=== PATIENT | male | born 1940 | race Caucasian/White ===

== ENCOUNTER 2017-02-06 18:18 | Inpatient (IN) | payer MEDICARE ==
[~2017-02-06] VITALS: Ht 177.8 cm; Wt 82.2 kg
[~2017-02-06 18:18] MED LIST: AVENZA PO; COLACE100 MG PO; MORPHINE SULFAT30 M1 PO; NIFEDIPINE ER90 MG PO; PRILOSEC40 MG PO; SOTALOL80 MG PO; ULTRAM 50MG50 MG PO; WARFARIN SODIUM10 MG PO
[2017-02-06] MEDS ORDERED: SODIUM CHLORIDE 0.9% 1000ML 500 ML IV STA (18:34)
[2017-02-06] MEDS ORDERED: SODIUM CHLORIDE 0.9% 500ML 500 ML ONE (18:42)
[2017-02-06] MEDS ORDERED: MORPHINE SULFATE 5 MG/ML VIAL IV ONE ×2 (18:45→20:00)
[2017-02-06] MEDS ORDERED: ONDANSETRON HCL INJ 2 MG/ML VIAL IV ONE (18:45)
[2017-02-06 18:57] LABS: BASOPHILS % 0.2 % (0.0-1.0); EOSINOPHILS # (AUTO) 0.1 (0.0-0.4); EOSINOPHILS % 0.8 % (0.0-6.0); HEMOGLOBIN 13.2 g/dL (14.0-18.0); LYMPHOCYTES % 10.6 % (18.0-39.1); MEAN CORPUSCULAR HEMOGLOBIN 26.6 pg (28-32); MEAN CORPUSCULAR VOLUME 80.6 fL (81-99); MONOCYTES # (AUTO) 0.2 (0.2-0.8); MONOCYTES % 2.1 % (4.4-11.3); NEUTROPHILS # (AUTO) 7.9 (2.1-6.9); PLATELET COUNT 178 x10e3/uL (140-360); RED BLOOD COUNT 4.96 x10e6/uL (4.3-5.7); RED CELL DISTRIBUTION WIDTH 14.8 % (11.7-14.4)
--- NOTE | 2017-02-06 19:13 | Diagnostic Imaging Report ---
Single view chest February 06, 2017 Clinical history: Epigastric pain Technique: AP view chest Comparison: None available. Findings: Lungs are clear. No pleural effusions. Upper limits of normal heart size for technique. Tortuous descending thoracic aorta. 2-lead pacemaker of the left hemithorax; leads grossly intact. Prominent central vasculature with peribronchial cuffing. The skeleton is grossly intact. Impression: Mild interstitial edema and vascular congestion consistent with congestive heart failure. This report was generated with voice-recognition technology. Errors in buttonhole maker can occur. Please interpret accordingly and contact a radiologist if there are any questions regarding the report. Signed by: Dr. Neel Rob M.D. on 02/06/2017 7:09 PM
[2017-02-06 19:16] LABS: INR 1.09; PARTIAL THROMBOPLASTIN TIME 33.5 seconds (23.8-35.5); PROTHROMBIN TIME 14.7 seconds (11.9-14.5)
[2017-02-06] MEDS ORDERED: LOSARTAN POTAS100 MG PO (19:16)
[2017-02-06] MEDS ORDERED: ELIQUIS PO (19:16)
[2017-02-06] MEDS ORDERED: FLOMAX0.4 MG PO (19:16)
[2017-02-06 19:25] LABS: ALANINE AMINOTRANSFERASE 102 IU/L (0-55); ALBUMIN 3.3 g/dL (3.5-5.0); ALBUMIN/GLOBULIN RATIO 0.7 (0.8-2.0); ALKALINE PHOSPHATASE 246 IU/L (40-150); AMYLASE 37 U/L (25-125); ANION GAP 14.1 mmol/L (8-16); BLOOD UREA NITROGEN 7 mg/dL (7-26); BUN/CREATININE RATIO 9 (6-25); CARBON DIOXIDE 27 mmol/L (22-29); CHLORIDE 103 mmol/L (98-107); CREATINE KINASE 45 IU/L (30-200); CREATININE, SERUM 0.82 mg/dL (0.72-1.25); EST GLOMERULAR FILTRATION RATE > 60 ML/MIN (60-); GLUCOSE 147 mg/dL (74-118); LIPASE 14 U/L (8-78); MAGNESIUM 1.7 MG/DL (1.3-2.1); POTASSIUM 3.1 mmol/L (3.5-5.1); SODIUM 141 mmol/L (136-145)
[2017-02-06 19:37] LABS: TROPONIN I 0.001 ng/mL (0-0.300)
[2017-02-06] MEDS ORDERED: ACETAMINOPHEN 325 MG TAB PO ONE (20:00)
[2017-02-06] MEDS ORDERED: HYDROMORPHONE 1MG/1ML INJ IV ONE (21:45)
--- NOTE | 2017-02-06 21:47 | Diagnostic Imaging Report ---
EXAM: US ABDOMEN COMPLETE DATE: 02/06/2017 12:00 AM Time stamp on exam: 2051 hours INDICATION: Severe stomach pain COMPARISON: None TECHNIQUE: Transverse and longitudinal watson scale and color doppler sonographic images of the upper abdomen were obtained. FINDINGS: LIVER 14.4 cm in the right midclavicular line. Normal echogenicity, normal contour, no masses. SPLEEN 11.3 cm in maximum diameter. Normal echogenicity, no masses. GALLBLADDER Cholecystectomy BILE DUCTS No intra nor extra-hepatic biliary dilation. Common bile duct measures 0.4 cm PANCREAS: Not well visualized RIGHT KIDNEY: 10 cm Echogenicity: Normal Collecting System: No hydronephrosis Stones: None Cyst/Mass: Simple 1.2 cm cyst inferior pole LEFT KIDNEY: 9.1 cm Echogenicity: Normal Collecting System: No hydronephrosis Stones: None Cyst/Mass: Simple 1 cm cyst inferior pole VESSELS: Aorta: Not well visualized Inferior Vena Cava: Not well visualized Main Portal Vein: 0.8 cm, normal size with hepatopetal flow. FREE FLUID: None IMPRESSION: Normal abdominal ultrasound. Cholecystectomy without ductal dilation. Signed by: Dr. Catherine Ramírez M.D. on 02/06/2017 9:43 PM
--- NOTE | 2017-02-06 23:01 | Diagnostic Imaging Report ---
EXAM: CT ABDOMEN AND PELVIS without IV CONTRAST DATE: 02/06/2017 10:10 PM Time stamp on Exam: 2223 hours INDICATION: Severe stomach pain COMPARISON: Abdominal ultrasound February 06, 2017 TECHNIQUE: The abdomen and pelvis were scanned using a multidetector helical scanner. Coronal and sagittal reformations were obtained. Routine protocol performed. IV Contrast: None Oral Contrast: None CTDIvol has been reviewed. It is below the limits set by the Radiation Protocol Committee (RPC). FINDINGS: LOWER THORAX: No consolidations LIVER: No masses BILIARY: Cholecystectomy. Pneumobilia in left hepatic lobe radicals. Common bile duct not well visualized. SPLEEN: No masses PANCREAS: The pancreatic head is poorly defined without IV contrast ADRENALS: No nodules RIGHT KIDNEY: No nephroureterolithiasis or hydronephrosis. Cyst measuring 1 cm in the posterior inferior pole. LEFT KIDNEY: No nephroureterolithiasis or hydronephrosis. Cyst measuring 1 cm in the lateral interpolar region. GI TRACT: No wall thickening or obstruction. Moderate sized hiatal hernia. 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 Normal appendix. 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 The cecum is in the right lower quadrant of the abdomen. VESSELS: Mild calcified atherosclerotic changes of the abdominal aorta without aneurysm. PERITONEUM/RETROPERITONEUM: No free air or fluid LYMPH NODES: Peripancreatic and retroperitoneal enlarged lymph nodes, for example 1.3 x 3 cm series 3, image 49. REPRODUCTIVE ORGANS: Normal BLADDER: Normal SOFT TISSUES: Normal BONES: Advanced degenerative changes of the lumbar spine with grade 1 anterolisthesis of L5 with respect to S1. IMPRESSION: 1. Left hepatic pneumobilia. Please correlate with possible procedural cause. 2. Peripancreatic and upper right retroperitoneal lymphadenopathy and poor visualization of the pancreatic head. An MRI of the abdomen with and without IV contrast is recommended to evaluate for underlying malignancy. 3. Moderate-sized hiatal hernia. Signed by: Dr. Catherine Ramírez M.D. on 02/06/2017 10:57 PM
[2017-02-07] MEDS ORDERED: KCL 20MEQ/.9 SOD CHL 1,000 ML IV ONE (01:15)
[2017-02-07] MEDS: PIPER-TAZ 3.375 GM 50 ML IV SCH (01:27)
[2017-02-07] MEDS: METRONIDAZOLE 500MG/NS 100ML 100 ML IV SCH ×4 (01:52→18:00)
[2017-02-07 02:45] VITALS: BP 136/63
[2017-02-07 04:07] LABS: BASOPHILS % 0.3 % (0.0-1.0); EOSINOPHILS % 0.1 % (0.0-6.0); HEMOGLOBIN 11.7 g/dL (14.0-18.0); LYMPHOCYTES # (AUTO) 0.6 (1.0-3.2); LYMPHOCYTES % 5.8 % (18.0-39.1); MEAN CORPUSCULAR HEMOGLOBIN 26.9 pg (28-32); MEAN CORPUSCULAR HGB CONC 33.4 g/dL (31-35); MEAN CORPUSCULAR VOLUME 80.5 fL (81-99); MONOCYTES # (AUTO) 0.7 (0.2-0.8); MONOCYTES % 5.9 % (4.4-11.3); NEUTROPHILS # (AUTO) 9.7 (2.1-6.9); NEUTROPHILS % 87.5 % (38.7-80.0); PLATELET COUNT 149 x10e3/uL (140-360); RED BLOOD COUNT 4.35 x10e6/uL (4.3-5.7); RED CELL DISTRIBUTION WIDTH 14.6 % (11.7-14.4)
[2017-02-07 04:32] LABS: ALANINE AMINOTRANSFERASE 392 IU/L (0-55); ALBUMIN 2.7 g/dL (3.5-5.0); ALBUMIN/GLOBULIN RATIO 0.7 (0.8-2.0); ALKALINE PHOSPHATASE 248 IU/L (40-150); AMYLASE 22 U/L (25-125); ANION GAP 11.8 mmol/L (8-16); BLOOD UREA NITROGEN 11 mg/dL (7-26); BUN/CREATININE RATIO 12 (6-25); CALCIUM 8.3 mg/dL (8.4-10.2); CARBON DIOXIDE 25 mmol/L (22-29); CHLORIDE 104 mmol/L (98-107); CREATININE, SERUM 0.92 mg/dL (0.72-1.25); EST GLOMERULAR FILTRATION RATE > 60 ML/MIN (60-); GLUCOSE 118 mg/dL (74-118); SODIUM 138 mmol/L (136-145)
[2017-02-07 04:38] LABS: POTASSIUM 2.8 mmol/L (3.5-5.1)
[2017-02-07 04:48] LABS: CREATINE KINASE MB 1.6 ng/mL (0.00-5.00); TROPONIN I 0.015 ng/mL (0-0.300)
[2017-02-07 04:57] LABS: LIPASE 7 U/L (8-78)
[2017-02-07] MEDS ORDERED: PHYTONADIONE 10 MG/ML AMP IM STA (05:06)
[2017-02-07] MEDS: ONDANSETRON HCL INJ 2 MG/ML VIAL IV PRN (07:56)
[2017-02-07 08:00] VITALS: BP 150/72
[2017-02-07] MEDS: HYDROMORPHONE 1MG/1ML INJ IV PRN (08:02)
[2017-02-07 12:00] VITALS: BP 151/72
[2017-02-07] MEDS: DEXTROSE 5%/0.45% SOD CHL 1,000 ML IV SCH ×2 (12:15→20:15)
[2017-02-07 12:48] LABS: CREATINE KINASE MB 1.2 ng/mL (0.00-5.00); TROPONIN I 0.021 ng/mL (0-0.300)
[2017-02-07] MEDS ORDERED: MORPHINE SULFATE 30 MG TAB ER PO ONE (13:58)
[2017-02-07] MEDS: MORPHINE SULFATE 30 MG TAB ER PO PRN ×2 (14:00→21:50)
[2017-02-07] MEDS ORDERED: MORPHINE SULFATE 5 MG/ML VIAL IV ONE (15:00)
[2017-02-07] MEDS ORDERED: POTASSIUM CHLORIDE 20MEQ/100ML 100 ML IV ONE ×2 (15:45→17:45)
[2017-02-07 16:29] LABS: BASOPHILS % 0.1 % (0.0-1.0); HEMATOCRIT 33.3 % (38.2-49.6); HEMOGLOBIN 11.1 g/dL (14.0-18.0); LYMPHOCYTES # (AUTO) 0.5 (1.0-3.2); LYMPHOCYTES % 6.8 % (18.0-39.1); MEAN CORPUSCULAR HEMOGLOBIN 26.7 pg (28-32); MEAN CORPUSCULAR HGB CONC 33.3 g/dL (31-35); MEAN CORPUSCULAR VOLUME 80.2 fL (81-99); MONOCYTES # (AUTO) 0.3 (0.2-0.8); MONOCYTES % 4.5 % (4.4-11.3); NEUTROPHILS # (AUTO) 6.5 (2.1-6.9); NEUTROPHILS % 88.3 % (38.7-80.0); PLATELET COUNT 117 x10e3/uL (140-360); RED BLOOD COUNT 4.15 x10e6/uL (4.3-5.7)
[2017-02-07 16:56] LABS: ALANINE AMINOTRANSFERASE 281 IU/L (0-55); ALBUMIN 2.5 g/dL (3.5-5.0); ALBUMIN/GLOBULIN RATIO 0.7 (0.8-2.0); ALKALINE PHOSPHATASE 191 IU/L (40-150); BLOOD UREA NITROGEN 12 mg/dL (7-26); BUN/CREATININE RATIO 15 (6-25); CALCIUM 8.1 mg/dL (8.4-10.2); CARBON DIOXIDE 25 mmol/L (22-29); CHLORIDE 105 mmol/L (98-107); EST GLOMERULAR FILTRATION RATE > 60 ML/MIN (60-); GLUCOSE 108 mg/dL (74-118); SODIUM 138 mmol/L (136-145)
[2017-02-07 17:26] LABS: ANION GAP 10.8 mmol/L (8-16); POTASSIUM 2.8 mmol/L (3.5-5.1)
[2017-02-07] MEDS ORDERED: SODIUM CHLORIDE 0.9% 1000ML 1,000 ML ONE (18:17)
[2017-02-07] MEDS ORDERED: HYDROCORTISONE SOD SUCCINATE 100 MG VIAL ONE (18:25)
[2017-02-07] MEDS ORDERED: LIDOCAINE HCL 2% JELLY 5 ML TUBE ONE (18:36)
[2017-02-07] MEDS ORDERED: SEVOFLURANE INHAL SOLN 250 ML PEN BTL ONE (18:36)
[2017-02-07] MEDS ORDERED: DIPHENHYDRAMINE HCL INJ 50 MG/ML VIAL ONE (18:36)
[2017-02-07] MEDS ORDERED: LIDOCAINE HCL 2% LOCAL INJ 5 ML SDV VIAL INJ ONE (18:36)
[2017-02-07] MEDS ORDERED: PROPOFOL IV EMULSION 10 MG/ML 20 ML VIAL ONE (18:36)
[2017-02-07] MEDS ORDERED: ONDANSETRON HCL INJ 2 MG/ML VIAL ONE ×2 (18:36→19:34)
[2017-02-07] MEDS ORDERED: ROCURONIUM BROMIDE 10 MG/ML 5ML VIAL ONE (18:36)
[2017-02-07] MEDS ORDERED: GLYCOPYRROLATE INJ 1MG/ 5 ML SYR ONE (18:36)
[2017-02-07] MEDS ORDERED: NEOSTIGMINE 5 MG/5ML SYR ONE (18:36)
[2017-02-07] MEDS ORDERED: INDOMETHACIN 50 MG SUPP.RECT RC ONE (18:54)
[2017-02-07] MEDS ORDERED: HYDROCORTISONE SOD SUCCINATE 100 MG VIAL IV ONE (19:00)
[2017-02-07] MEDS ORDERED: FENTANYL CITRATE/PF 100MCG/2 ML INJ ONE (19:06)
[2017-02-07] MEDS ORDERED: METOCLOPRAMIDE HCL 10 MG/2ML VIAL ONE (19:34)
[2017-02-07] MEDS ORDERED: MORPHINE SULFATE 5 MG/ML VIAL ONE (19:40)
[2017-02-07 20:00] VITALS: BP 143/70
[2017-02-07] MEDS: APIXABAN 5 MG TABLET PO SCH (20:47)
[2017-02-07] MEDS: TAMSULOSIN HCL 0.4 MG CAP PO SCH (20:47)
[2017-02-07] MEDS: SOTALOL HCL 80 MG TAB PO SCH (20:48)
[2017-02-08] VITALS: BP 142/64
[2017-02-08] MEDS: METRONIDAZOLE 500MG/NS 100ML 100 ML IV SCH ×4 (00:08→18:00)
[2017-02-08] MEDS: ONDANSETRON HCL INJ 2 MG/ML VIAL IV PRN (00:28)
[2017-02-08] MEDS ORDERED: PANTOPRAZOLE 40 MG 10ML VIAL IV STA (02:45)
[2017-02-08] MEDS ORDERED: PANTOPRAZOL 40MG/SOD CHL 0.9% 50 ML IV SCH (03:00)
[2017-02-08] MEDS: PANTOPRAZOL 40MG/SOD CHL 0.9% 50 ML IV SCH ×5 (03:29→22:19)
[2017-02-08] MEDS ORDERED: SODIUM CHLORIDE 0.9% 50ML 50 ML IV NR (03:30)
[2017-02-08] MEDS ORDERED: PANTOPRAZOLE 40 MG 10ML VIAL IV SCH (03:30)
[2017-02-08] MEDS: DEXTROSE 5%/0.45% SOD CHL 1,000 ML IV SCH ×3 (03:48→20:15)
[2017-02-08] MEDS: PIPER-TAZ 3.375 GM 50 ML IV SCH ×3 (05:19→18:00)
[2017-02-08] MEDS: MORPHINE SULFATE 30 MG TAB ER PO PRN (05:44)
[2017-02-08] MEDS ORDERED: PANTOPRAZOLE SOD 40 MG TABEC PO SCH (07:30)
[2017-02-08 08:00] VITALS: BP 154/70
[2017-02-08 08:42] LABS: BASOPHILS % 0.2 % (0.0-1.0); EOSINOPHILS % 0.2 % (0.0-6.0); HEMATOCRIT 31.4 % (38.2-49.6); HEMOGLOBIN 10.4 g/dL (14.0-18.0); LYMPHOCYTES # (AUTO) 0.8 (1.0-3.2); LYMPHOCYTES % 13.9 % (18.0-39.1); MEAN CORPUSCULAR HEMOGLOBIN 26.5 pg (28-32); MEAN CORPUSCULAR HGB CONC 33.1 g/dL (31-35); MEAN CORPUSCULAR VOLUME 80.1 fL (81-99); MONOCYTES # (AUTO) 0.4 (0.2-0.8); MONOCYTES % 6.9 % (4.4-11.3); NEUTROPHILS # (AUTO) 4.6 (2.1-6.9); NEUTROPHILS % 78.5 % (38.7-80.0); PLATELET COUNT 114 x10e3/uL (140-360); RED BLOOD COUNT 3.92 x10e6/uL (4.3-5.7); RED CELL DISTRIBUTION WIDTH 15.3 % (11.7-14.4)
[2017-02-08 08:52] LABS: CLARITY,URINE CLOUDY (CLEAR); COLOR,URINE AMBER (YELLOW); KETONES,URINE NEGATIVE (NEGATIVE); LEUKOCYTE ESTERASE ,URINE 1+ (NEGATIVE); URINE UROBILINOGEN 8 mg/dL (0.2 - 1)
[2017-02-08 08:54] LABS: BILIRUBIN,URINE 2+ (NEGATIVE); NITRITE,URINE POSITIVE (NEGATIVE); PROTEIN,URINE DIPSTICK TRACE (NEGATIVE)
[2017-02-08] MEDS: HYDROMORPHONE 2MG/ML INJ IV PRN ×3 (09:12→20:15)
[2017-02-08] MEDS: LOSARTAN POTASSIUM 100 MG TAB PO SCH (09:18)
[2017-02-08] MEDS: HYDROMORPHONE 1MG/1ML INJ IV PRN (09:18)
[2017-02-08] MEDS: TAMSULOSIN HCL 0.4 MG CAP PO SCH ×2 (09:18→18:00)
[2017-02-08] MEDS: NIFEDIPINE CR 30 MG TAB PO SCH (09:18)
[2017-02-08] MEDS: APIXABAN 5 MG TABLET PO SCH ×2 (09:18→18:00)
[2017-02-08 09:19] LABS: ALANINE AMINOTRANSFERASE 193 IU/L (0-55); ALBUMIN 2.3 g/dL (3.5-5.0); ALBUMIN/GLOBULIN RATIO 0.6 (0.8-2.0); ALKALINE PHOSPHATASE 151 IU/L (40-150); ANION GAP 8.9 mmol/L (8-16); BLOOD UREA NITROGEN 12 mg/dL (7-26); BUN/CREATININE RATIO 15 (6-25); CALCIUM 7.9 mg/dL (8.4-10.2); CARBON DIOXIDE 24 mmol/L (22-29); CHLORIDE 109 mmol/L (98-107); CREATININE, SERUM 0.78 mg/dL (0.72-1.25); EST GLOMERULAR FILTRATION RATE > 60 ML/MIN (60-); GLUCOSE 96 mg/dL (74-118); SODIUM 139 mmol/L (136-145)
[2017-02-08] MEDS: SOTALOL HCL 80 MG TAB PO SCH ×2 (09:19→18:00)
[2017-02-08 09:25] LABS: EPITHELIAL CELLS,URINE MANY /LPF; RBC,URINE 0-5 /HPF (0-5); WBC,URINE (MAN) 0-5 /HPF (0-5)
[2017-02-08 09:26] LABS: POTASSIUM 2.9 mmol/L (3.5-5.1)
--- NOTE | 2017-02-08 09:35 | Operative Report ---
DATE OF PROCEDURE: February 07, 2017 REFERRING PHYSICIAN: Dr. Jf Green. PROCEDURE PERFORMED: Endoscopic retrograde cholangiopancreatography. INDICATIONS FOR PROCEDURE: Obstructive jaundice. MRCP not done as patient has a pacemaker. ANESTHESIA: Patient was done under general endotracheal anesthesia. Please see anesthesiologist's note. PROCEDURE: With the patient in the prone position, the flexible fiberoptic Olympus side-viewing scope was introduced into the esophagus and advanced all the way to the 2nd portion of the duodenum. A periampullary diverticulum was noted. Previous sphincterotomy site was identified, and it was cannulated with ease. However, the wire kept repetitively entering the pancreatic duct despite several attempts and despite being in a good CBD position. The scope was then subsequently withdrawn. Patient tolerated the procedure well. IMPRESSION: 1. Periampullary diverticulum. 2. Previous sphincterotomy site cannulated, but the pancreatic duct was preferentially repetitively cannulated. Will ask IR to proceed with percutaneous transhepatic cholangiogram. Job#: [id number] EV cc:JF GREEN MD
[2017-02-08 12:00] VITALS: BP 167/67
[2017-02-08] MEDS ORDERED: POTASSIUM CHLORIDE 20 MEQ TAB CR PO ONE (14:00)
[2017-02-08] MEDS ORDERED: POTASSIUM CHLORIDE 20MEQ/100ML 100 ML IV ONE (14:30)
[2017-02-08] MEDS ORDERED: MORPHINE SULFATE 30 MG TAB ER PO SCH (15:00)
[2017-02-08] MEDS: MORPHINE SULFATE 30 MG TAB ER PO SCH ×2 (15:34→22:19)
[2017-02-08 16:00] VITALS: BP 141/65
[2017-02-08 20:00] VITALS: BP 134/73
--- NOTE | 2017-02-08 21:47 | Diagnostic Imaging Report ---
EXAM: CHEST 2 VIEWS, PA and lateral DATE: 02/08/2017 8:45 PM Time stamp on exam: 1811 hours INDICATION: Infection, slight chest pain COMPARISON: AP view of the chest February 06, 2017 FINDINGS: LINES/TUBES: Stable left approach dual lead cardiac device. LUNGS: No consolidations or edema. Scattered atelectatic changes. PLEURA: No effusions or pneumothorax. HEART AND MEDIASTINUM: Normal size and contour. BONES AND SOFT TISSUES: No acute findings. IMPRESSION: No consolidative pneumonia. Signed by: Dr. Catherine Raímrez M.D. on 02/08/2017 9:43 PM
[2017-02-09 00:31] VITALS: BP 141/70
[2017-02-09] MEDS: PIPER-TAZ 3.375 GM 50 ML IV SCH ×4 (02:16→19:24)
[2017-02-09] MEDS: METRONIDAZOLE 500MG/NS 100ML 100 ML IV SCH ×4 (02:16→19:24)
[2017-02-09] MEDS: HYDROMORPHONE 2MG/ML INJ IV PRN ×3 (04:47→19:50)
[2017-02-09] MEDS: PANTOPRAZOL 40MG/SOD CHL 0.9% 50 ML IV SCH ×4 (05:26→19:30)
[2017-02-09] MEDS: DEXTROSE 5%/0.45% SOD CHL 1,000 ML IV SCH ×3 (05:26→19:50)
[2017-02-09] MEDS: MORPHINE SULFATE 30 MG TAB ER PO SCH ×3 (06:30→22:03)
[2017-02-09 07:13] LABS: BASOPHILS % 0.2 % (0.0-1.0); HEMOGLOBIN 10.9 g/dL (14.0-18.0); LYMPHOCYTES # (AUTO) 0.6 (1.0-3.2); LYMPHOCYTES % 14.5 % (18.0-39.1); MEAN CORPUSCULAR HEMOGLOBIN 26.6 pg (28-32); MEAN CORPUSCULAR VOLUME 80.5 fL (81-99); MONOCYTES # (AUTO) 0.4 (0.2-0.8); MONOCYTES % 8.6 % (4.4-11.3); NEUTROPHILS # (AUTO) 3.2 (2.1-6.9); NEUTROPHILS % 75.5 % (38.7-80.0); PLATELET COUNT 130 x10e3/uL (140-360); RED CELL DISTRIBUTION WIDTH 15.3 % (11.7-14.4)
[2017-02-09 07:35] VITALS: BP 125/65
[2017-02-09 07:48] LABS: ALANINE AMINOTRANSFERASE 135 IU/L (0-55); ALBUMIN 2.5 g/dL (3.5-5.0); ALBUMIN/GLOBULIN RATIO 0.6 (0.8-2.0); ALKALINE PHOSPHATASE 132 IU/L (40-150); ANION GAP 8.1 mmol/L (8-16); BLOOD UREA NITROGEN 6 mg/dL (7-26); BUN/CREATININE RATIO 8 (6-25); CALCIUM 7.9 mg/dL (8.4-10.2); CARBON DIOXIDE 24 mmol/L (22-29); CHLORIDE 104 mmol/L (98-107); CREATININE, SERUM 0.75 mg/dL (0.72-1.25); EST GLOMERULAR FILTRATION RATE > 60 ML/MIN (60-); GLUCOSE 95 mg/dL (74-118); POTASSIUM 3.1 mmol/L (3.5-5.1); SODIUM 133 mmol/L (136-145)
[2017-02-09] MEDS ORDERED: POTASSIUM CHLORIDE 20 MEQ TAB CR PO ONE (08:45)
[2017-02-09] MEDS: TAMSULOSIN HCL 0.4 MG CAP PO SCH ×2 (10:45→19:24)
[2017-02-09] MEDS: SOTALOL HCL 80 MG TAB PO SCH ×2 (10:45→19:24)
[2017-02-09] MEDS: APIXABAN 5 MG TABLET PO SCH ×2 (10:45→19:24)
[2017-02-09] MEDS: LOSARTAN POTASSIUM 100 MG TAB PO SCH (10:46)
[2017-02-09] MEDS: NIFEDIPINE CR 30 MG TAB PO SCH (10:46)
[2017-02-09 11:41] VITALS: BP 148/76
[2017-02-09 16:32] VITALS: BP 136/75
[2017-02-09 20:37] VITALS: BP 137/71
[2017-02-09] MEDS: ACETAMINOPHEN 325 MG TAB PO PRN (21:00)
[2017-02-10] MEDS: PANTOPRAZOL 40MG/SOD CHL 0.9% 50 ML IV SCH ×3 (00:30→10:30)
[2017-02-10] MEDS: PIPER-TAZ 3.375 GM 50 ML IV SCH ×2 (00:37→05:41)
[2017-02-10] MEDS: METRONIDAZOLE 500MG/NS 100ML 100 ML IV SCH ×3 (00:45→13:31)
[2017-02-10 01:18] VITALS: BP 126/76
[2017-02-10] MEDS: ACETAMINOPHEN 325 MG TAB PO PRN (05:41)
[2017-02-10] MEDS: MORPHINE SULFATE 30 MG TAB ER PO SCH ×2 (05:41→14:04)
[2017-02-10] MEDS: DEXTROSE 5%/0.45% SOD CHL 1,000 ML IV SCH ×2 (05:42→13:32)
[2017-02-10 06:16] LABS: BASOPHILS % 0.5 % (0.0-1.0); EOSINOPHILS # (AUTO) 0.1 (0.0-0.4); EOSINOPHILS % 1.6 % (0.0-6.0); HEMOGLOBIN 11.6 g/dL (14.0-18.0); LYMPHOCYTES # (AUTO) 0.9 (1.0-3.2); LYMPHOCYTES % 23.1 % (18.0-39.1); MEAN CORPUSCULAR HEMOGLOBIN 26.2 pg (28-32); MEAN CORPUSCULAR HGB CONC 33.1 g/dL (31-35); MEAN CORPUSCULAR VOLUME 79.2 fL (81-99); MONOCYTES # (AUTO) 0.4 (0.2-0.8); NEUTROPHILS # (AUTO) 2.4 (2.1-6.9); PLATELET COUNT 132 x10e3/uL (140-360); RED BLOOD COUNT 4.42 x10e6/uL (4.3-5.7)
[2017-02-10 06:22] VITALS: BP 131/61
[2017-02-10 06:36] LABS: ALANINE AMINOTRANSFERASE 93 IU/L (0-55); ALBUMIN 2.5 g/dL (3.5-5.0); ALBUMIN/GLOBULIN RATIO 0.6 (0.8-2.0); ALKALINE PHOSPHATASE 116 IU/L (40-150); BLOOD UREA NITROGEN < 5 mg/dL (7-26); CALCIUM 8.4 mg/dL (8.4-10.2); CARBON DIOXIDE 26 mmol/L (22-29); CHLORIDE 105 mmol/L (98-107); CREATININE, SERUM 0.71 mg/dL (0.72-1.25); EST GLOMERULAR FILTRATION RATE > 60 ML/MIN (60-); GLUCOSE 112 mg/dL (74-118); SODIUM 139 mmol/L (136-145)
[2017-02-10 06:53] LABS: BUN/CREATININE RATIO 7 (6-25)
[2017-02-10] MEDS: TAMSULOSIN HCL 0.4 MG CAP PO SCH (07:54)
[2017-02-10] MEDS: LOSARTAN POTASSIUM 100 MG TAB PO SCH (07:54)
[2017-02-10] MEDS: APIXABAN 5 MG TABLET PO SCH (07:54)
[2017-02-10] MEDS: SOTALOL HCL 80 MG TAB PO SCH (07:55)
[2017-02-10] MEDS: NIFEDIPINE CR 30 MG TAB PO SCH (07:55)
[2017-02-10] MEDS: HYDROMORPHONE 2MG/ML INJ IV PRN (07:55)
[2017-02-10 08:03] VITALS: BP 117/75
[2017-02-10] MEDS ORDERED: POTASSIUM CHLORIDE 20 MEQ TAB CR PO ONE ×2 (10:45→12:00)
[2017-02-10] MEDS ORDERED: POTASSIUM CHLORIDE 10 MEQ TABCR PO NR (13:00)
[2017-02-10 13:04] VITALS: BP 122/77
[2017-02-10] MEDS ORDERED: POTASSIUM CHLORIDE 20MEQ/100ML 100 ML IV ONE (13:30)
[2017-02-10] MEDS ORDERED: PIPERACILLIN/TAZOBAC 3.375 GM in SODIUM CHLORIDE 0.9% 100 ML 100 ML IV SCH ×4 (15:00)
[2017-02-10 16:19] VITALS: BP 134/76
== END 2017-02-10 17:34 | disposition home or self-care (01) | DRG 392 ==
LOC: ER 18:18 → MED/SURG2 02-07 02:11
PROC: 0FJD8ZZ Inspection of Pancreatic Duct, Via Natural or Artificial Opening Endoscopic (ICD-10-PCS; principal; 2017-02-07 18:10)
DX: R10.11 Right upper quadrant pain (principal); I11.0 Hypertensive heart disease with heart failure; I50.9 Heart failure, unspecified; E86.0 Dehydration; D72.829 Elevated white blood cell count, unspecified; M54.5 Low back pain; G89.29 Other chronic pain; K21.9 Gastro-esophageal reflux disease without esophagitis; R59.1 Generalized enlarged lymph nodes; R74.8 Abnormal levels of other serum enzymes; K57.10 Diverticulosis of small intestine without perforation or abscess without bleeding; Z95.0 Presence of cardiac pacemaker; Z79.01 Long term (current) use of anticoagulants; Z88.2 Allergy status to sulfonamides; Z91.041 Radiographic dye allergy status
CPT/HCPCS: 36415; 71010; 71020; 74176; 76001; 76700; 80053; 81001; 82150; 82550; 82553; 83605; 83690; 83735; 84484; 85025; 85610; 85730; 87040; 87086; 93005; 96360; 96365; 96374; 96376; 97139; 99284; J1170; J1200; J1720; J2001; J2270; J2405; J2543; J2765; J3430; J3480; J7030; J7040

== ENCOUNTER → 2018-06-03 | Outpatient (CLI) | payer MEDICARE ==
[~2018-06-03] MED LIST changes: +ELIQUIS PO; +FLOMAX0.4 MG PO; +LOSARTAN POTAS100 MG PO
--- NOTE | 2018-06-03 15:38 | Diagnostic Imaging Report ---
Exam: Right elbow radiographs-3 views Clinical History: Right elbow pain. Comparison: None. Findings: No evidence of acute fracture, malalignment, or joint effusion. There is triceps enthesopathy. There is a well-corticated bone adjacent to the lateral condyle and within the olecranon fossa. This likely represents sequela of prior trauma. Impression: No acute radiographic abnormality. Likely sequela of remote trauma as above. Signed by: Dr. Waldemar Diallo MD on 06/03/2018 3:35 PM
== END ==
LOC: RAD 13:26
PROVIDERS: ATTEND Internal Medicine
DX: M25.521 Pain in right elbow (principal)

== ENCOUNTER → 2019-11-07 | Outpatient (CLI) | payer MEDICARE ==
--- NOTE | 2019-11-07 15:28 | Diagnostic Imaging Report ---
Exam: Right shoulder 2 views History: Shoulder pain Comparison: None. Findings: No fracture or malalignment. Narrowing of the acromiohumeral interval with subacromial spurring. Moderate glenohumeral and acromioclavicular osteoarthrosis. No abnormal soft tissue calcification or soft tissue defect. Impression: No acute osseous abnormality Moderate degenerative arthrosis of the shoulder Findings of chronic full-thickness rotator cuff tear Signed by: Dr. Farrukh Goodman M.D. on 11/07/2019 3:24 PM
== END ==
LOC: RAD 13:16
PROVIDERS: ATTEND Internal Medicine
DX: M25.511 Pain in right shoulder (principal); M19.011 Primary osteoarthritis, right shoulder
CPT/HCPCS: 93970

== ENCOUNTER → 2024-05-11 | Outpatient (REF) | payer MEDICARE | LOC: MAMMO 10:01 | PROVIDERS: ATTEND Family Medicine | DX: N64.9 Disorder of breast, unspecified (principal) | CPT/HCPCS: 77066 ==